=== PATIENT | female | born 1950 | race Caucasian/White ===

== ENCOUNTER 2021-05-09 09:34 | Outpatient (CLI) | payer MEDICARE, BC | END 2021-05-09 09:35 | disposition home or self-care (01) | LOC: CTENTCT 09:34 | PROVIDERS: ATTEND Otolaryngology Plastic Surgery within the Head & Neck | DX: J32.9 Chronic sinusitis, unspecified (principal) | CPT/HCPCS: 70486 ==

== ENCOUNTER 2021-08-01 07:51 | Outpatient (CLI) | payer MEDICARE, BC | END 2021-08-01 07:52 | disposition home or self-care (01) | LOC: BICULT 07:51 | PROVIDERS: ATTEND Family Medicine | DX: R10.13 Epigastric pain (principal); R10.2 Pelvic and perineal pain; R41.89 Other symptoms and signs involving cognitive functions and awareness; N28.1 Cyst of kidney, acquired | CPT/HCPCS: 70551; 76700; 76856 ==

== ENCOUNTER 2021-08-28 15:28 | Outpatient (CLI) | payer MEDICARE, BC ==
[2021-08-28 16:25] LABS: Hemoglobin 13.8 g/dL (12.0-15.5); Mean Corpuscular HGB CONC 32.9 g/dL (32.0-36.0); Mean Corpuscular Hemoglobin 33.3 pg (27.0-33.0); Mean Platelet Volume 9.9 fl (7.4-10.4); Platelet Count 228 10x3/uL (150-450); Red Blood Cell (RBC) Count 4.15 10x6/uL (3.90-5.03); White Blood Cell (WBC) Count 11.8 10x3/uL (3.5-10.5)
[2021-08-28 16:27] LABS: INR-International Normal Ratio 0.9; PTT 21.4 sec (22.0-33.0); Prothrombin Time 10.5 sec (9.5-12.1)
[2021-08-29 00:58] LABS: SARS-CoV-2 PCR by NAA Not Detected (NotDetected)
== END 2021-08-28 15:29 | disposition home or self-care (01) ==
LOC: LABBT 15:28
PROVIDERS: ATTEND Neurological Surgery
DX: Z01.812 Encounter for preprocedural laboratory examination (principal); G52.0 Disorders of olfactory nerve; Z20.822 Contact with and (suspected) exposure to COVID-19
CPT/HCPCS: 85027; 85610; 85730; U0003; U0005

== ENCOUNTER 2021-08-28 15:30 | Inpatient (IN) | payer MEDICARE, BC ==
[2021-08-31] MEDS ORDERED: ceFAZolin 2 GM/DEX 5% 100 ML BAG ONE (06:01)
[2021-08-31] MEDS ORDERED: Lidocaine 0.5%/Epinephrine 1:200,000 50 ml Vial ONE (06:09)
[2021-08-31] MEDS ORDERED: Bacitracin Zinc Ointment 30 gm TUBE ONE (06:10)
[2021-08-31] MEDS ORDERED: Thrombin 5000 UNITS/5 ML VIAL ONE ×2 (06:10→13:19)
[2021-08-31] MEDS ORDERED: Neomycin-Polymyxin 1 ML AMP ONE ×4 (06:10→19:33)
[2021-08-31] MEDS ORDERED: HYDROcodone/Acetaminophen 10/325 mg Tablet PO PRN (06:41)
[2021-08-31] MEDS ORDERED: Mag-Al 1200 mg/1200 mg/30 ML UDCUP PO PRN (06:41)
[2021-08-31] MEDS ORDERED: HYDROcodone/Acetaminophen 7.5/325 mg Tablet PO PRN (06:41)
[2021-08-31] MEDS ORDERED: Promethazine HCl 25 MG/ML VIAL IM PRN (06:41)
[2021-08-31] MEDS ORDERED: Docusate 100 MG CAP PO PRN (06:41)
[2021-08-31] MEDS ORDERED: Acetaminophen 325 MG TAB PO PRN (06:41)
[2021-08-31] MEDS ORDERED: diphenhydrAMINE 50 MG/ML VIAL IVP PRN (06:41)
[2021-08-31] MEDS ORDERED: Ondansetron PF 4 MG/2 ML Vial IVP PRN (06:41)
[2021-08-31] MEDS: Sodium Chloride 0.9% 1,000 ML IV SCH ×2 (06:45→21:15)
[2021-08-31] MEDS ORDERED: Propofol 1,000 MG/100 ML VIAL IV ONE ×2 (06:48→16:18)
[2021-08-31] MEDS ORDERED: Midazolam HCl 2 mg/2 ml Vial ONE (06:48)
[2021-08-31] MEDS ORDERED: levETIRAcetam in NS 100 ML ONE ×2 (06:48→07:03)
[2021-08-31] MEDS ORDERED: levETIRAcetam 500 MG/100 ML PREMIX BAG ONE (06:48)
[2021-08-31] MEDS ORDERED: Albumin 5% 500 ML ONE ×2 (06:48→18:00)
[2021-08-31] MEDS ORDERED: Fentanyl 250 MCG/5 ML VIAL ONE (06:48)
[2021-08-31] MEDS ORDERED: Vecuronium 10 MG VIAL ONE ×3 (06:49→14:21)
[2021-08-31] MEDS ORDERED: Morphine 4 MG/ML VIAL SLOW IVP PRN (06:55)
[2021-08-31] MEDS ORDERED: Ondansetron PF 4 MG/2 ML Vial ONE (07:18)
[2021-08-31] MEDS ORDERED: Dexamethasone 20 MG/5 ML VIAL ONE (07:18)
[2021-08-31] MEDS ORDERED: ePHEDrine 50 MG/ML VIAL ONE (07:18)
[2021-08-31] MEDS ORDERED: PROPOFOL 200 MG/20 ML VIAL ONE (07:18)
[2021-08-31] MEDS ORDERED: Lidocaine 1% PF 5 ML VIAL ONE (07:18)
[2021-08-31] MEDS ORDERED: Rocuronium Bromide 10 MG/ML (10ML VIAL) ONE (07:18)
[2021-08-31] MEDS ORDERED: PHENYLEPHRINE-NS 100 MCG/ML 10 ML SYRINGE ONE ×2 (07:18→20:55)
[2021-08-31] MEDS ORDERED: Dexmedetomidine 200 MCG/2 ML VIAL ONE (07:20)
[2021-08-31] MEDS ORDERED: Phenylephrine 10 MG/ML VIAL ONE ×4 (10:46→20:18)
[2021-08-31] MEDS ORDERED: Mannitol 12.5 GM/50 ML ONE ×4 (11:08→12:54)
[2021-08-31] MEDS ORDERED: Fentanyl 100 MCG/2 ML VIAL ONE ×2 (12:13→19:41)
[2021-08-31] MEDS ORDERED: Sodium Chloride 256 MEQ in Sterile Water Injection 936 ML IV SCH ×2 (13:00→18:15)
[2021-08-31] MEDS: ceFAZolin Sodium/D5W 2 GM in Premix Bag 1 BAG IVPB SCH ×2 (14:00→22:00)
[2021-08-31] MEDS ORDERED: Ventilator Sedation Protocol 1 EACH FS ONE (17:12)
[2021-08-31] MEDS ORDERED: Electrolyte Replacement Protocol 1 EACH FS SCH (17:12)
[2021-08-31] MEDS ORDERED: CEFAZOLIN 1 GM VIAL ONE (17:13)
[2021-08-31] MEDS ORDERED: Morphine 2 MG/ML VIAL SLOW IVP PRN (17:30)
[2021-08-31] MEDS ORDERED: Propofol BOLUS 1,000 MG/100 ML VIAL IV PRN (17:30)
[2021-08-31] MEDS ORDERED: Propofol 1,000 MG/100 ML VIAL IV PRN (17:30)
[2021-08-31] MEDS ORDERED: Fentanyl BOLUS 250 ML IVPB PRN (17:30)
[2021-08-31] MEDS ORDERED: Lorazepam 2 MG/ML VIAL SLOW IVP PRN (17:30)
[2021-08-31] MEDS ORDERED: DISCONTINUE PREVIOUS NARCOTIC PAIN MEDICATIONS AND BENZODIAZEPINES FS SCH (17:30)
[2021-08-31] MEDS ORDERED: Fentanyl CADD 100 ML IV SCH (17:30)
[2021-08-31 22:07] LABS: INR-International Normal Ratio 1.4; Prothrombin Time 16.9 sec (12.0-14.7)
[2021-08-31 22:17] LABS: Anion Gap 13 mmol/L (10-20); BUN (Urea Nitrogen) 21 mg/dL (9.8-20.1); Calc. Creatinine Clearance 94 mL/min (70-130); Calcium 7.1 mg/dL (7.8-10.44); Carbon Dioxide 16 mmol/L (23-31); Chloride 121 mmol/L (98-107); Glucose 206 mg/dL (80-115); Potassium 4.7 mmol/L (3.5-5.1); Sodium 145 mmol/L (136-145)
[2021-08-31 22:23] LABS: Actual Bicarbonate (HCO3a) 15.1 mEq/L (22-28); Base Excess (BEa) -8.8 mEq/L (-2.0 to +3.0); CO2 Tension 26.8 mmHg (35.0-45.0); Calcium, Ionized (arterial) 1.07 mmol/L (1.12-1.30); Carboxyhemoglobin (COHb) 0.3 gm% (0.0-3.0); Hemoglobin (Hb) 10.5 g/dL (12.0-16.0); O2 Tension (PaO2), arterial 134.8 mmHg (> 80.0); Potassium - ABG Lab 4.16 mmol/L (3.70-5.30); pH, Arterial 7.37 (7.35-7.45)
[2021-08-31 22:24] LABS: Puncture Site LINE
[2021-08-31] MEDS ORDERED: niCARdipine 25 MG in Sodium Chloride 0.9% 250 ML 240 ML IVPB SCH (22:30)
[2021-08-31] MEDS: Phenylephrine 40 MG/NS 250 ML 40 MG in Premix Bag 1 BAG IVPB SCH (22:42)
[2021-08-31 22:56] LABS: Band 15 % (5-11); Hemoglobin 10.8 g/dL (12.0-16.0); Lymphocytes 8 % (21-51); MDiff Complete? YES; Mean Corpuscular HGB CONC 34.5 g/dL (32.0-36.0); Mean Corpuscular Volume 95.6 fL (78.0-98.0); Mean Platelet Volume 7.7 fL (7.4-10.4); Monocytes 7 % (0-10); Neutrophil 70 % (42-75); Nucleated RBC 3 % (0); Platelet Count 193 thou/uL (130-400); RBC Distribution Width 15.4 % (11.5-14.5); Red Blood Cell (RBC) Count 3.27 mill/uL (4.20-5.40); White Blood Cell (WBC) Count 27.3 thou/uL (4.8-10.8)
[2021-09-01] MEDS: Sodium Chloride 256 MEQ in Sterile Water Injection 936 ML IV SCH ×2 (00:26→11:32)
[2021-09-01] MEDS ORDERED: Dexamethasone 4 mg/ml Vial SLOW IVP SCH (00:45)
[2021-09-01] MEDS ORDERED: Fentanyl CADD 100 ML ONE (03:16)
[2021-09-01 05:42] LABS: Anion Gap 12 mmol/L (10-20); BUN (Urea Nitrogen) 26 mg/dL (9.8-20.1); Calc. Creatinine Clearance 98 mL/min (70-130); Calcium 7.5 mg/dL (7.8-10.44); Carbon Dioxide 17 mmol/L (23-31); Chloride 120 mmol/L (98-107); Glucose 239 mg/dL (80-115); Potassium 4.4 mmol/L (3.5-5.1); Sodium 145 mmol/L (136-145)
[2021-09-01] MEDS: ceFAZolin Sodium/D5W 2 GM in Premix Bag 1 BAG IVPB SCH ×3 (06:11→22:02)
[2021-09-01 06:55] LABS: Hemoglobin 10.4 g/dL (12.0-16.0); Mean Corpuscular HGB CONC 35.1 g/dL (32.0-36.0); Mean Corpuscular Hemoglobin 33.5 pg (27.0-31.0); Mean Corpuscular Volume 95.7 fL (78.0-98.0); Mean Platelet Volume 8.3 fL (7.4-10.4); Platelet Count 189 thou/uL (130-400); RBC Distribution Width 15.9 % (11.5-14.5); Red Blood Cell (RBC) Count 3.11 mill/uL (4.20-5.40); White Blood Cell (WBC) Count 28.2 thou/uL (4.8-10.8)
[2021-09-01 06:56] LABS: Band 16 % (5-11); Lymphocytes 5 % (21-51); MDiff Complete? YES; Monocytes 2 % (0-10); Neutrophil 77 % (42-75); Nucleated RBC 2 % (0)
[2021-09-01] MEDS: Pantoprazole 40 MG VIAL IVP SCH ×2 (08:29→21:01)
[2021-09-01] MEDS: Phenylephrine 40 MG/NS 250 ML 40 MG in Premix Bag 1 BAG IVPB SCH ×2 (08:29→21:35)
[2021-09-01] MEDS: Dexamethasone 4 mg/ml Vial SLOW IVP SCH ×4 (08:29→21:01)
[2021-09-01 08:45] LABS: CKMB 2.5 ng/mL (0-6.6)
[2021-09-01] MEDS ORDERED: Cosyntropin 250 MCG VIAL SLOW IVP SCH ×2 (10:00→10:15)
[2021-09-01] MEDS ORDERED: Dextrose 50% Abboject 50 ML SYRINGE SLOW IVP PRN (10:01)
[2021-09-01] MEDS ORDERED: HumaLOG 300 UNITS/3 ML VIAL SC PRN (10:01)
[2021-09-01] MEDS ORDERED: Dextrose 5% in Water 1,000 ML IV PRN (10:01)
[2021-09-01] MEDS: Sodium Chloride 0.9% 1,000 ML IV SCH (11:32)
[2021-09-01 14:04] LABS: Anion Gap 9 mmol/L (10-20); BUN (Urea Nitrogen) 31 mg/dL (9.8-20.1); Calc. Creatinine Clearance 106 mL/min (70-130); Calcium 7.6 mg/dL (7.8-10.44); Carbon Dioxide 19 mmol/L (23-31); Chloride 122 mmol/L (98-107); Glucose 222 mg/dL (80-115); Potassium 4.4 mmol/L (3.5-5.1); Sodium 146 mmol/L (136-145)
[2021-09-01] MEDS ORDERED: Acetaminophen 650 MG Suppository PR PRN (14:30)
[2021-09-01] MEDS: HumaLOG 300 UNITS/3 ML VIAL SC PRN (17:45)
[2021-09-01] MEDS: Acetaminophen 650 MG/20.3 ML UDCUP PO PRN (21:00)
[2021-09-02] MEDS: Sodium Chloride 256 MEQ in Sterile Water Injection 936 ML IV SCH (04:45)
[2021-09-02 05:06] LABS: Hemoglobin 7.6 g/dL (12.0-16.0); Mean Corpuscular HGB CONC 35.3 g/dL (32.0-36.0); Mean Corpuscular Hemoglobin 33.6 pg (27.0-31.0); Mean Corpuscular Volume 95.2 fL (78.0-98.0); Mean Platelet Volume 7.8 fL (7.4-10.4); Platelet Count 131 thou/uL (130-400); RBC Distribution Width 15.5 % (11.5-14.5); Red Blood Cell (RBC) Count 2.24 mill/uL (4.20-5.40)
[2021-09-02] MEDS: Sodium Chloride 0.9% 1,000 ML IV SCH ×3 (05:11→15:33)
[2021-09-02 05:12] LABS: ALT (SGPT) 55 U/L (8-55); AST (SGOT) 18 U/L (5-34); Albumin 2.4 g/dL (3.4-4.8); Alkaline Phosphatase 30 U/L (40-110); Anion Gap 7 mmol/L (10-20); BUN (Urea Nitrogen) 22 mg/dL (9.8-20.1); Calc. Creatinine Clearance 122 mL/min (70-130); Calcium 8.1 mg/dL (7.8-10.44); Carbon Dioxide 21 mmol/L (23-31); Chloride 124 mmol/L (98-107); Globulin 1.4 g/dL (2.4-3.5); Glucose 195 mg/dL (80-115); Potassium 3.6 mmol/L (3.5-5.1); Protein, Total 3.8 g/dL (5.8-8.1); Sodium 148 mmol/L (136-145)
[2021-09-02 05:31] LABS: Band 8 % (5-11); Lymphocytes 5 % (21-51); MDiff Complete? YES; Monocytes 7 % (0-10); Myelocyte 2 % (0-0); Neutrophil 78 % (42-75)
[2021-09-02] MEDS: ceFAZolin Sodium/D5W 2 GM in Premix Bag 1 BAG IVPB SCH ×2 (05:54→15:33)
[2021-09-02] MEDS: HumaLOG 300 UNITS/3 ML VIAL SC PRN ×3 (06:36→17:17)
[2021-09-02 07:18] LABS: Actual Bicarbonate (HCO3a) 22.4 mEq/L (22-28); CO2 Tension 31.3 mmHg (35.0-45.0); Calcium, Ionized (arterial) 1.24 mmol/L (1.12-1.30); Carboxyhemoglobin (COHb) 0.3 gm% (0.0-3.0); Hemoglobin (Hb) 6.9 g/dL (12.0-16.0); Potassium - ABG Lab 3.38 mmol/L (3.70-5.30); pH, Arterial 7.47 (7.35-7.45)
[2021-09-02 07:20] LABS: Puncture Site RRA
[2021-09-02 07:21] LABS: ALV-art Gradient 133.425 mmHg (0-20)
[2021-09-02] MEDS: Dexamethasone 4 mg/ml Vial SLOW IVP SCH ×4 (09:21→21:03)
[2021-09-02] MEDS: Pantoprazole 40 MG VIAL IVP SCH ×2 (09:21→21:03)
[2021-09-02] MEDS: CEFAZOLIN 2 GM in Sodium Chloride 0.9% 100 ML IVPB SCH ×2 (14:27→21:03)
[2021-09-02] MEDS: Acetaminophen 650 MG/20.3 ML UDCUP PO PRN (15:44)
[2021-09-02 17:00] LABS: Sodium 151 mmol/L (136-145)
[2021-09-03 04:57] LABS: Anion Gap 6 mmol/L (10-20); BUN (Urea Nitrogen) 32 mg/dL (9.8-20.1); Calc. Creatinine Clearance 126 mL/min (70-130); Calcium 8.5 mg/dL (7.8-10.44); Carbon Dioxide 24 mmol/L (23-31); Chloride 125 mmol/L (98-107); Glucose 205 mg/dL (80-115); Potassium 3.3 mmol/L (3.5-5.1); Sodium 152 mmol/L (136-145)
[2021-09-03] MEDS: CEFAZOLIN 2 GM, Admixture Fee 1 EACH in Sodium Chloride 0.9% 100 ML IVPB SCH ×3 (05:42→21:30)
[2021-09-03] MEDS ORDERED: Potassium Chloride 40 MEQ in Premix Bag 1 BAG IVPB SCH (05:45)
[2021-09-03] MEDS: HumaLOG 300 UNITS/3 ML VIAL SC PRN ×2 (05:58→22:00)
[2021-09-03] MEDS: Sodium Chloride 0.9% 1,000 ML IV SCH ×2 (05:58→14:07)
[2021-09-03 06:33] LABS: Band 15 % (5-11); Lymphocytes 12 % (21-51); MDiff Complete? YES; Mean Corpuscular HGB CONC 35.3 g/dL (32.0-36.0); Mean Corpuscular Hemoglobin 34.1 pg (27.0-31.0); Mean Corpuscular Volume 96.6 fL (78.0-98.0); Mean Platelet Volume 7.8 fL (7.4-10.4); Monocytes 7 % (0-10); Neutrophil 66 % (42-75); Platelet Count 100 thou/uL (130-400); Platelet Morphology Comment Appears Decreased; RBC Distribution Width 15.4 % (11.5-14.5); Red Blood Cell (RBC) Count 1.76 mill/uL (4.20-5.40); White Blood Cell (WBC) Count 9.2 thou/uL (4.8-10.8)
[2021-09-03 07:10] LABS: Actual Bicarbonate (HCO3a) 20.8 mEq/L (22-28); Calcium, Ionized (arterial) 1.27 mmol/L (1.12-1.30); Carboxyhemoglobin (COHb) 1.3 gm% (0.0-3.0); O2 Tension (PaO2), arterial 115.9 mmHg (> 80.0); Potassium - ABG Lab 3.24 mmol/L (3.70-5.30); pH, Arterial 7.52 (7.35-7.45)
[2021-09-03 07:11] LABS: CO2 Tension 25.8 mmHg (35.0-45.0); Puncture Site RRA
[2021-09-03] MEDS: Pantoprazole 40 MG VIAL IVP SCH ×2 (07:37→21:29)
[2021-09-03] MEDS: Dexamethasone 4 mg/ml Vial SLOW IVP SCH ×4 (07:37→21:29)
[2021-09-03] MEDS ORDERED: Electrolyte Replacement Protocol 1 EACH FS SCH (07:38)
[2021-09-03 13:14] LABS: #Lymphocytes 0.7 thou/uL (1.20-3.40); #Monocytes 0.5 thou/uL (0.11-0.59); %Lymphocytes 7.6 % (21.0-51.0); %Neutrophils 87.4 % (42.0-75.0); Hemoglobin 7.1 g/dL (12.0-16.0); Mean Corpuscular HGB CONC 35.4 g/dL (32.0-36.0); Mean Corpuscular Hemoglobin 33.7 pg (27.0-31.0); Mean Corpuscular Volume 95.2 fL (78.0-98.0); Mean Platelet Volume 7.9 fL (7.4-10.4); Platelet Count 104 thou/uL (130-400); White Blood Cell (WBC) Count 9.2 thou/uL (4.8-10.8)
[2021-09-03 13:29] LABS: Anion Gap 8 mmol/L (10-20); BUN (Urea Nitrogen) 28 mg/dL (9.8-20.1); Calc. Creatinine Clearance 143 mL/min (70-130); Calcium 8.4 mg/dL (7.8-10.44); Carbon Dioxide 24 mmol/L (23-31); Chloride 125 mmol/L (98-107); Glucose 175 mg/dL (80-115); Potassium 3.8 mmol/L (3.5-5.1); Sodium 153 mmol/L (136-145)
[2021-09-04 04:42] LABS: Hemoglobin 7.9 g/dL (12.0-16.0); Mean Corpuscular HGB CONC 35.6 g/dL (32.0-36.0); Mean Corpuscular Hemoglobin 33.1 pg (27.0-31.0); Mean Corpuscular Volume 93.1 fL (78.0-98.0); Mean Platelet Volume 7.8 fL (7.4-10.4); Platelet Count 129 thou/uL (130-400); RBC Distribution Width 14.8 % (11.5-14.5); Red Blood Cell (RBC) Count 2.39 mill/uL (4.20-5.40); White Blood Cell (WBC) Count 10.8 thou/uL (4.8-10.8)
[2021-09-04 04:58] LABS: Anion Gap 10 mmol/L (10-20); BUN (Urea Nitrogen) 23 mg/dL (9.8-20.1); Calc. Creatinine Clearance 131 mL/min (70-130); Calcium 8.5 mg/dL (7.8-10.44); Carbon Dioxide 24 mmol/L (23-31); Chloride 125 mmol/L (98-107); Glucose 210 mg/dL (80-115); Iron 46 ug/dL (50-170); Iron Binding Capacity, Total 169 mcg/dL (265-497); Potassium 3.8 mmol/L (3.5-5.1); Sodium 155 mmol/L (136-145)
[2021-09-04 05:21] LABS: Band 12 % (5-11); Lymphocytes 12 % (21-51); MDiff Complete? YES; Monocytes 2 % (0-10); Neutrophil 74 % (42-75); Nucleated RBC 1 % (0)
[2021-09-04] MEDS: CEFAZOLIN 2 GM, Admixture Fee 1 EACH in Sodium Chloride 0.9% 100 ML IVPB SCH ×3 (05:54→21:52)
[2021-09-04] MEDS: HumaLOG 300 UNITS/3 ML VIAL SC PRN ×4 (06:12→22:27)
[2021-09-04 07:31] LABS: Base Excess (BEa) -1.3 mEq/L (-2.0 to +3.0); CO2 Tension 30.6 mmHg (35.0-45.0); Calcium, Ionized (arterial) 1.28 mmol/L (1.12-1.30); Carboxyhemoglobin (COHb) 1.3 gm% (0.0-3.0); Hemoglobin (Hb) 7.3 g/dL (12.0-16.0); O2 Tension (PaO2), arterial 77.8 mmHg (> 80.0); Potassium - ABG Lab 3.56 mmol/L (3.70-5.30); pH, Arterial 7.48 (7.35-7.45)
[2021-09-04 07:49] LABS: Puncture Site RRA
[2021-09-04] MEDS ORDERED: Furosemide 40 MG/4 ML VIAL SLOW IVP SCH (09:15)
[2021-09-04] MEDS: Dexamethasone 4 mg/ml Vial SLOW IVP SCH ×4 (09:42→21:52)
[2021-09-04] MEDS: levETIRAcetam in NS 500 MG in Premix Bag 1 BAG IVPB SCH ×2 (09:46→21:52)
[2021-09-04] MEDS: Pantoprazole 40 MG VIAL IVP SCH ×2 (09:46→21:52)
[2021-09-04] MEDS: Sodium Chloride 0.9% 1,000 ML IV SCH (09:54)
[2021-09-04 14:16] LABS: Actual Bicarbonate (HCO3a) 22.7 mEq/L (22-28); Analyzer IN Cardio OR; CO2 Tension 34.5 mmHg (35.0-45.0); Calcium, Ionized (arterial) 1.14 mmol/L (1.12-1.30); Carboxyhemoglobin (COHb) 0.5 gm% (0.0-3.0); Hemoglobin (Hb) 11.4 g/dL (12.0-16.0); O2 Tension (PaO2), arterial 132.7 mmHg (> 80.0); Potassium - ABG Lab 3.99 mmol/L (3.70-5.30); pH, Arterial 7.44 (7.35-7.45)
[2021-09-04 14:16] LABS: Actual Bicarbonate (HCO3a) 18.4 mEq/L (22-28); Analyzer IN Cardio OR; Base Excess (BEa) -4.5 mEq/L (-2.0 to +3.0); CO2 Tension 27.5 mmHg (35.0-45.0); Calcium, Ionized (arterial) 1.12 mmol/L (1.12-1.30); Carboxyhemoglobin (COHb) 0.4 gm% (0.0-3.0); Hemoglobin (Hb) 11.4 g/dL (12.0-16.0); O2 Tension (PaO2), arterial 199.9 mmHg (> 80.0); Potassium - ABG Lab 4.04 mmol/L (3.70-5.30); pH, Arterial 7.44 (7.35-7.45)
[2021-09-04 14:17] LABS: Actual Bicarbonate (HCO3a) 19.9 mEq/L (22-28); Analyzer IN Cardio OR; Base Excess (BEa) -4.1 mEq/L (-2.0 to +3.0); CO2 Tension 32.5 mmHg (35.0-45.0); Calcium, Ionized (arterial) 1.09 mmol/L (1.12-1.30); Carboxyhemoglobin (COHb) 0.4 gm% (0.0-3.0); Hemoglobin (Hb) 10.6 g/dL (12.0-16.0); O2 Tension (PaO2), arterial 211.4 mmHg (> 80.0); Potassium - ABG Lab 4.66 mmol/L (3.70-5.30); pH, Arterial 7.41 (7.35-7.45)
[2021-09-04 14:17] LABS: Actual Bicarbonate (HCO3a) 21.8 mEq/L (22-28); Analyzer IN Cardio OR; Base Excess (BEa) -1.5 mEq/L (-2.0 to +3.0); CO2 Tension 31.4 mmHg (35.0-45.0); Calcium, Ionized (arterial) 1.08 mmol/L (1.12-1.30); Carboxyhemoglobin (COHb) 0.4 gm% (0.0-3.0); Hemoglobin (Hb) 9.6 g/dL (12.0-16.0); O2 Tension (PaO2), arterial 215.8 mmHg (> 80.0); Potassium - ABG Lab 4.02 mmol/L (3.70-5.30); pH, Arterial 7.46 (7.35-7.45)
[2021-09-04 14:18] LABS: Puncture Site Arterial Line
[2021-09-04 14:18] LABS: Puncture Site Arterial Line
[2021-09-04 14:19] LABS: Puncture Site Arterial Line
[2021-09-04 14:19] LABS: Puncture Site Arterial Line
[2021-09-04] MEDS ORDERED: Furosemide 20 MG/2 ML VIAL SLOW IVP SCH (15:30)
[2021-09-04] MEDS: Scopolamine 1.5 mg/72 hour Patch TD SCH (15:37)
[2021-09-05 04:30] LABS: Anion Gap 8 mmol/L (10-20); BUN (Urea Nitrogen) 27 mg/dL (9.8-20.1); Calc. Creatinine Clearance 137 mL/min (70-130); Calcium 8.3 mg/dL (7.8-10.44); Carbon Dioxide 30 mmol/L (23-31); Chloride 119 mmol/L (98-107); Glucose 190 mg/dL (80-115); Potassium 3.5 mmol/L (3.5-5.1); Sodium 153 mmol/L (136-145)
[2021-09-05 04:53] LABS: Band 22 % (5-11); Hemoglobin 7.7 g/dL (12.0-16.0); Lymphocytes 11 % (21-51); MDiff Complete? YES; Mean Corpuscular HGB CONC 34.6 g/dL (32.0-36.0); Mean Corpuscular Hemoglobin 32.6 pg (27.0-31.0); Mean Corpuscular Volume 94.4 fL (78.0-98.0); Mean Platelet Volume 7.6 fL (7.4-10.4); Monocytes 3 % (0-10); Neutrophil 64 % (42-75); Platelet Count 144 thou/uL (130-400); RBC Distribution Width 14.6 % (11.5-14.5); Red Blood Cell (RBC) Count 2.36 mill/uL (4.20-5.40); White Blood Cell (WBC) Count 8.3 thou/uL (4.8-10.8)
[2021-09-05] MEDS ORDERED: Potassium Chloride 40 MEQ in Premix Bag 1 BAG IVPB SCH (05:30)
[2021-09-05] MEDS: CEFAZOLIN 2 GM, Admixture Fee 1 EACH in Sodium Chloride 0.9% 100 ML IVPB SCH ×3 (05:51→21:19)
[2021-09-05] MEDS: HumaLOG 300 UNITS/3 ML VIAL SC PRN (05:54)
[2021-09-05 07:34] LABS: Actual Bicarbonate (HCO3a) 27.3 mEq/L (22-28); CO2 Tension 34.9 mmHg (35.0-45.0); Calcium, Ionized (arterial) 1.24 mmol/L (1.12-1.30); Carboxyhemoglobin (COHb) 0.4 gm% (0.0-3.0); Hemoglobin (Hb) 7.3 g/dL (12.0-16.0); O2 Tension (PaO2), arterial 66.7 mmHg (> 80.0); Potassium - ABG Lab 3.56 mmol/L (3.70-5.30); pH, Arterial 7.51 (7.35-7.45)
[2021-09-05 07:40] LABS: ALV-art Gradient 139.225 mmHg (0-20); Puncture Site RRA
[2021-09-05] MEDS: Dexamethasone 4 mg/ml Vial SLOW IVP SCH ×4 (08:51→21:20)
[2021-09-05] MEDS: levETIRAcetam in NS 500 MG in Premix Bag 1 BAG IVPB SCH ×2 (08:51→21:19)
[2021-09-05] MEDS: Pantoprazole 40 MG VIAL IVP SCH ×2 (08:51→21:20)
[2021-09-05] MEDS ORDERED: Furosemide 40 MG/4 ML VIAL SLOW IVP SCH (09:30)
[2021-09-06 04:51] LABS: Mean Corpuscular HGB CONC 34.7 g/dL (32.0-36.0); Mean Corpuscular Hemoglobin 33.3 pg (27.0-31.0); Mean Corpuscular Volume 96.2 fL (78.0-98.0); Mean Platelet Volume 7.8 fL (7.4-10.4); Platelet Count 154 thou/uL (130-400); RBC Distribution Width 15.1 % (11.5-14.5); White Blood Cell (WBC) Count 13.5 thou/uL (4.8-10.8)
[2021-09-06 05:00] LABS: ALT (SGPT) 185 U/L (8-55); AST (SGOT) 111 U/L (5-34); Albumin 2.6 g/dL (3.4-4.8); Alkaline Phosphatase 52 U/L (40-110); Anion Gap 9 mmol/L (10-20); BUN (Urea Nitrogen) 24 mg/dL (9.8-20.1); Bilirubin, Total 1.9 mg/dL (0.2-1.2); Calc. Creatinine Clearance 153 mL/min (70-130); Calcium 8.8 mg/dL (7.8-10.44); Carbon Dioxide 30 mmol/L (23-31); Chloride 113 mmol/L (98-107); Globulin 1.7 g/dL (2.4-3.5); Glucose 151 mg/dL (80-115); Magnesium 2.1 mg/dL (1.6-2.6); Potassium 3.4 mmol/L (3.5-5.1); Protein, Total 4.3 g/dL (5.8-8.1); Sodium 149 mmol/L (136-145)
[2021-09-06 05:04] LABS: Phosphorus 2.3 mg/dL (2.3-4.7)
[2021-09-06 05:51] LABS: Band 20 % (5-11); Lymphocytes 10 % (21-51); MDiff Complete? YES; Metamyelocyte 1 % (0-0); Monocytes 5 % (0-10); Myelocyte 5 % (0-0); Neutrophil 59 % (42-75)
[2021-09-06] MEDS: CEFAZOLIN 2 GM, Admixture Fee 1 EACH in Sodium Chloride 0.9% 100 ML IVPB SCH ×2 (06:06→14:21)
[2021-09-06] MEDS ORDERED: Potassium Chloride 40 MEQ in Sodium Chloride 0.9% 250 ML 250 ML IVPB SCH (08:00)
[2021-09-06] MEDS: hydrALAZINE 20 MG/ML VIAL SLOW IVP PRN (08:08)
[2021-09-06] MEDS: Dexamethasone 4 mg/ml Vial SLOW IVP SCH (09:06)
[2021-09-06] MEDS: levETIRAcetam in NS 500 MG in Premix Bag 1 BAG IVPB SCH ×2 (09:06→20:24)
[2021-09-06] MEDS ORDERED: Amlodipine 10 MG TAB PO SCH (09:15)
[2021-09-06] MEDS: Pantoprazole 40 MG VIAL IVP SCH ×2 (09:23→20:24)
[2021-09-06] MEDS: Dexamethasone 1 MG TAB PO SCH ×3 (13:23→20:25)
[2021-09-06] MEDS: Acetaminophen 650 MG/20.3 ML UDCUP PO PRN (20:39)
[2021-09-06] MEDS: ceFAZolin Sodium/D5W 2 GM in Premix Bag 1 BAG IVPB SCH (21:08)
[2021-09-07] MEDS: ceFAZolin Sodium/D5W 2 GM in Premix Bag 1 BAG IVPB SCH ×3 (05:21→22:22)
[2021-09-07 05:43] LABS: Hemoglobin 9.7 g/dL (12.0-16.0); Mean Corpuscular HGB CONC 33.4 g/dL (32.0-36.0); Mean Corpuscular Hemoglobin 32.2 pg (27.0-31.0); Mean Corpuscular Volume 96.4 fL (78.0-98.0); Platelet Count 172 thou/uL (130-400); RBC Distribution Width 15.2 % (11.5-14.5); Red Blood Cell (RBC) Count 3.01 mill/uL (4.20-5.40); White Blood Cell (WBC) Count 13.5 thou/uL (4.8-10.8)
[2021-09-07 05:51] LABS: ALT (SGPT) 146 U/L (8-55); AST (SGOT) 55 U/L (5-34); Albumin 2.8 g/dL (3.4-4.8); Alkaline Phosphatase 60 U/L (40-110); Bilirubin, Direct 0.8 mg/dL (0.1-0.3); Bilirubin, Total 1.6 mg/dL (0.2-1.2); Protein, Total 4.9 g/dL (5.8-8.1)
[2021-09-07 06:00] LABS: Anion Gap 12 mmol/L (10-20); BUN (Urea Nitrogen) 13 mg/dL (9.8-20.1); Calc. Creatinine Clearance 171 mL/min (70-130); Calcium 8.4 mg/dL (7.8-10.44); Carbon Dioxide 27 mmol/L (23-31); Chloride 109 mmol/L (98-107); Glucose 143 mg/dL (80-115); Potassium 3.5 mmol/L (3.5-5.1); Sodium 144 mmol/L (136-145)
[2021-09-07 06:13] LABS: Band 7 % (5-11); Lymphocytes 20 % (21-51); MDiff Complete? YES; Neutrophil 73 % (42-75)
[2021-09-07] MEDS: hydrALAZINE 20 MG/ML VIAL SLOW IVP PRN (06:16)
[2021-09-07] MEDS: Acetaminophen 650 MG/20.3 ML UDCUP PO PRN ×2 (06:27→09:37)
[2021-09-07] MEDS ORDERED: Potassium Chloride 40 MEQ in Sodium Chloride 0.9% 250 ML 250 ML IVPB SCH (08:00)
[2021-09-07] MEDS ORDERED: Amlodipine 10 MG TAB PO SCH (09:00)
[2021-09-07] MEDS: levETIRAcetam in NS 500 MG in Premix Bag 1 BAG IVPB SCH ×2 (09:00→22:21)
[2021-09-07] MEDS: Lisinopril 5 MG TAB PO SCH (09:20)
[2021-09-07] MEDS: Dexamethasone 1 MG TAB PO SCH ×4 (09:20→22:21)
[2021-09-07] MEDS: Pantoprazole 40 MG VIAL IVP SCH ×2 (09:27→22:22)
[2021-09-07] MEDS: Scopolamine 1.5 mg/72 hour Patch TD SCH (14:24)
[2021-09-08] MEDS: ceFAZolin Sodium/D5W 2 GM in Premix Bag 1 BAG IVPB SCH (05:56)
[2021-09-08 06:09] LABS: Band 12 % (5-11); Hemoglobin 10.3 g/dL (12.0-16.0); Hypochromia SLIGHT = 6-15 cells (100X) (0-5/hpf); Lymphocytes 17 % (21-51); MDiff Complete? YES; Mean Corpuscular HGB CONC 34.5 g/dL (32.0-36.0); Mean Corpuscular Hemoglobin 33.3 pg (27.0-31.0); Mean Corpuscular Volume 96.3 fL (78.0-98.0); Mean Platelet Volume 7.8 fL (7.4-10.4); Monocytes 6 % (0-10); Neutrophil 64 % (42-75); Platelet Count 176 thou/uL (130-400); Platelet Morphology Comment Appears Adequate; RBC Distribution Width 15.3 % (11.5-14.5); Reactive Lymphocytes 1 % (0-10); Red Blood Cell (RBC) Count 3.11 mill/uL (4.20-5.40); White Blood Cell (WBC) Count 11.3 thou/uL (4.8-10.8)
[2021-09-08 06:28] LABS: Anion Gap 9 mmol/L (10-20); BUN (Urea Nitrogen) 13 mg/dL (9.8-20.1); Calc. Creatinine Clearance 163 mL/min (70-130); Calcium 8.4 mg/dL (7.8-10.44); Carbon Dioxide 27 mmol/L (23-31); Chloride 109 mmol/L (98-107); Glucose 142 mg/dL (80-115); Potassium 3.4 mmol/L (3.5-5.1); Sodium 142 mmol/L (136-145)
[2021-09-08] MEDS: Dexamethasone 1 MG TAB PO SCH (07:49)
[2021-09-08] MEDS ORDERED: Potassium Chloride 40 MEQ in Sodium Chloride 0.9% 250 ML 250 ML IVPB SCH (08:00)
[2021-09-08] MEDS ORDERED: Potassium Chloride 20 MEQ TAB PO SCH (09:00)
[2021-09-08] MEDS: Pantoprazole 40 MG VIAL IVP SCH (09:34)
[2021-09-08] MEDS: Lisinopril 5 MG TAB PO SCH (09:34)
[2021-09-08] MEDS: levETIRAcetam in NS 500 MG in Premix Bag 1 BAG IVPB SCH (09:35)
[2021-09-08 14:22] VITALS: BMI 35.2
[2021-09-08 16:12] VITALS: BP 135/81; TEMP 98.5
[2021-09-08] MEDS ORDERED: Dexamethasone 1 MG TAB PO SCH (17:00)
[2021-09-08] MEDS ORDERED: Amoxicillin/Potassium Clav 875 MG TAB PO SCH (21:00)
[2021-09-08] MEDS ORDERED: levETIRAcetam 500 MG TAB PO SCH (21:00)
== END 2021-09-08 16:30 | DRG 25 ==
LOC: SURG A 08-31 05:48 → CCU 08-31 21:12 → SURG A 09-06 15:20
PROVIDERS: ADMIT Neurological Surgery; ATTEND Internal Medicine
PROC: 00B10ZZ Excision of Cerebral Meninges, Open Approach (ICD-10-PCS; 2021-08-31)
PROC: 09BV0ZZ Excision of Left Ethmoid Sinus, Open Approach (ICD-10-PCS; 2021-08-31)
PROC: 09BU0ZZ Excision of Right Ethmoid Sinus, Open Approach (ICD-10-PCS; 2021-08-31)
PROC: 00U207Z Supplement Dura Mater with Autologous Tissue Substitute, Open Approach (ICD-10-PCS; 2021-08-31)
PROC: 5A1955Z Respiratory Ventilation, Greater than 96 Consecutive Hours (ICD-10-PCS; 2021-08-31)
PROC: 0BH18EZ Insertion of Endotracheal Airway into Trachea, Via Natural or Artificial Opening Endoscopic (ICD-10-PCS; 2021-08-31)
PROC: 30233L1 Transfusion of Nonautologous Fresh Plasma into Peripheral Vein, Percutaneous Approach (ICD-10-PCS; 2021-08-31)
PROC: 30233N1 Transfusion of Nonautologous Red Blood Cells into Peripheral Vein, Percutaneous Approach (ICD-10-PCS; 2021-08-31)
PROC: 30233K1 Transfusion of Nonautologous Frozen Plasma into Peripheral Vein, Percutaneous Approach (ICD-10-PCS; 2021-08-31)
PROC: 02HV33Z Insertion of Infusion Device into Superior Vena Cava, Percutaneous Approach (ICD-10-PCS; principal; 2021-09-01)
PROC: 3E0333Z Introduction of Anti-inflammatory into Peripheral Vein, Percutaneous Approach (ICD-10-PCS; 2021-09-01)
DX: D32.0 Benign neoplasm of cerebral meninges (principal); J96.01 Acute respiratory failure with hypoxia; G93.6 Cerebral edema; E87.0 Hyperosmolality and hypernatremia; G93.40 Encephalopathy, unspecified; D72.829 Elevated white blood cell count, unspecified; R73.9 Hyperglycemia, unspecified; T38.0X5A Adverse effect of glucocorticoids and synthetic analogues, initial encounter; E87.8 Other disorders of electrolyte and fluid balance, not elsewhere classified; E87.6 Hypokalemia; D63.8 Anemia in other chronic diseases classified elsewhere; F41.9 Anxiety disorder, unspecified; Z91.010 Allergy to peanuts
CPT/HCPCS: 36415; 36416; 36430; 36600; 70450; 71045; 76000; 80048; 80053; 80076; 80400; 82553; 82728; 82805; 83540; 83550; 83735; 84100; 84484; 85007; 85025; 85027; 85610; 85730; 86850; 86900; 86901; 88307; 88331; 88334; 88341; 88342; 88360; 93005; 93010; 93970; 94002; 94003; A4217; C1713; C9113; J0360; J0690; J0834; J1100; J1815; J1940; J1953; J2001; J2150; J2250; J2370; J2405; J2704; J3010; J3480; J3490; J7050; J8540; P9016; P9045; P9059; U0003; U0005

== ENCOUNTER 2021-11-06 09:49 | Outpatient (CLI) | payer MEDICARE, BC | END 2021-11-06 09:50 | disposition home or self-care (01) | LOC: CT 09:49 | PROVIDERS: ATTEND Neurological Surgery | DX: D32.9 Benign neoplasm of meninges, unspecified (principal); Z98.890 Other specified postprocedural states | CPT/HCPCS: 70450 ==

== ENCOUNTER 2021-12-18 11:19 | Outpatient (CLI) | payer MEDICARE, BC | END 2021-12-18 11:20 | disposition home or self-care (01) | LOC: MRI 11:19 | PROVIDERS: ATTEND Neurological Surgery | DX: D32.0 Benign neoplasm of cerebral meninges (principal); G93.89 Other specified disorders of brain | CPT/HCPCS: 70551 ==

== ENCOUNTER 2022-12-25 10:20 | Outpatient (CLI) | payer MEDICARE, BC | END 2022-12-25 10:21 | disposition home or self-care (01) | LOC: MRI 10:20 | PROVIDERS: ATTEND Neurological Surgery | DX: D33.2 Benign neoplasm of brain, unspecified (principal); Z98.890 Other specified postprocedural states | CPT/HCPCS: 70551 ==

== ENCOUNTER 2023-01-25 09:23 | Outpatient (CLI) | payer MEDICARE, BC | END 2023-01-25 09:24 | disposition home or self-care (01) | LOC: BICMAMMO 09:23 | PROVIDERS: ATTEND Family Medicine | DX: Z12.31 Encounter for screening mammogram for malignant neoplasm of breast (principal); Z13.820 Encounter for screening for osteoporosis; N95.9 Unspecified menopausal and perimenopausal disorder; M81.0 Age-related osteoporosis without current pathological fracture; M85.851 Other specified disorders of bone density and structure, right thigh; M85.852 Other specified disorders of bone density and structure, left thigh | CPT/HCPCS: 77063; 77067; 77080 ==

== ENCOUNTER 2024-05-04 15:36 | Outpatient (CLI) | payer MEDICARE | END 2024-05-04 15:37 | disposition home or self-care (01) | LOC: BICRAD 15:36 | PROVIDERS: ATTEND Family Medicine | DX: S33.5XXA Sprain of ligaments of lumbar spine, initial encounter (principal); M47.22 Other spondylosis with radiculopathy, cervical region; M47.816 Spondylosis without myelopathy or radiculopathy, lumbar region; I70.0 Atherosclerosis of aorta; K31.89 Other diseases of stomach and duodenum | CPT/HCPCS: 72040; 72110 ==

== ENCOUNTER 2024-05-21 09:52 | Outpatient (CLI) | payer MEDICARE, BC | END 2024-05-21 09:53 | disposition home or self-care (01) | LOC: BICULT 09:52 | PROVIDERS: ATTEND Family Medicine | DX: K80.20 Calculus of gallbladder without cholecystitis without obstruction (principal); N20.0 Calculus of kidney; M47.26 Other spondylosis with radiculopathy, lumbar region; M47.817 Spondylosis without myelopathy or radiculopathy, lumbosacral region; M41.9 Scoliosis, unspecified; N28.1 Cyst of kidney, acquired; M47.22 Other spondylosis with radiculopathy, cervical region; K76.89 Other specified diseases of liver | CPT/HCPCS: 72141; 72148; 76705; 76770 ==

== ENCOUNTER 2024-06-04 10:31 | Outpatient (CLI) | payer MEDICARE, BC | END 2024-06-04 10:32 | disposition home or self-care (01) | LOC: BICULT 10:31 | PROVIDERS: ATTEND Family Medicine | DX: E04.2 Nontoxic multinodular goiter (principal) | CPT/HCPCS: 76536 ==

== ENCOUNTER → 2024-08-19 | Day surgery (SDC) | payer MEDICARE, BC | LOC: ULT 12:27 | PROVIDERS: ATTEND Otolaryngology Plastic Surgery within the Head & Neck | PROC: 0G9K3ZX Drainage of Thyroid Gland, Percutaneous Approach, Diagnostic (ICD-10-PCS; principal; 2024-08-19) | DX: E04.1 Nontoxic single thyroid nodule (principal) | CPT/HCPCS: 10005; 10006; 88173; 88305 ==

== ENCOUNTER 2025-01-04 10:41 | Outpatient (CLI) | payer MEDICARE, BC ==
[2025-01-04] MEDS ORDERED: Magnevist 469MG/ML 20 ML VIAL ONE (15:23)
== END 2025-01-04 10:42 | disposition home or self-care (01) ==
LOC: MRI 10:41
PROVIDERS: ATTEND Neurological Surgery
DX: D32.0 Benign neoplasm of cerebral meninges (principal); Z98.890 Other specified postprocedural states
CPT/HCPCS: 70553; 76376